=== PATIENT | male | born 1965 | race Caucasian/White ===

== ENCOUNTER 2020-01-01 11:13 | Emergency (ER) | payer MEDICAID ==
[2020-01-01] MEDS ORDERED: Ketorolac 30 MG/ML SDV IM ONE (12:21)
--- NOTE | 2020-01-01 12:21 | EDM.PDOC ---
ED HPI GENERAL MEDICAL PROBLEM - General Chief Complaint: Laceration Stated Complaint: RIGHT THUMB INJURY Time Seen by Provider: 01/01/20 12:21 Source of Information: Reports: Patient History Limitations: Reports: No Limitations - History of Present Illness INITIAL COMMENTS - FREE TEXT/NARRATIVE: 54 years old male patient presented to the ER with a chief complaint of right thumb injury. He was working on his motorcycle and injured his right thumb. Bleeding controlled. No other injuries. She is up-to-date for his tetanus. Right Finger-Thumb Pain Score (Numeric/FACES): 7 - Related Data Allergies Allergy/AdvReac Type Severity Reaction Status Date / Time No Known Allergies Allergy Verified 01/01/20 11:32 Home Meds: Home Meds . [Unable to Verify Home Med List] 01/01/20 [History] Past Medical History HEENT History: Reports: None Cardiovascular History: Reports: High Cholesterol Respiratory History: Reports: None Gastrointestinal History: Reports: GERD Genitourinary History: Reports: None Musculoskeletal History: Reports: None Neurological History: Reports: None Psychiatric History: Reports: None Endocrine/Metabolic History: Reports: None Hematologic History: Reports: None Dermatologic History: Reports: None - Past Surgical History Male Surgical History: Reports: None Musculoskeletal Surgical History: Reports: None Social & Family History - Tobacco Use Smoking Status *Q: Never Smoker - Caffeine Use Caffeine Use: Reports: Coffee - Recreational Drug Use Recreational Drug Use: No ED ROS GENERAL - Review of Systems Review Of Systems: Comprehensive ROS is negative, except as noted in HPI. ED EXAM, SKIN/RASH Exam: See Below Exam Limited By: No Limitations General Appearance: Alert, WD/WN, No Apparent Distress Head: Atraumatic, Normocephalic Respiratory/Chest: No Respiratory Distress, Lungs Clear, Normal Breath Sounds, No Accessory Muscle Use, Chest Non-Tender Cardiovascular: Normal Peripheral Pulses, Regular Rate, Rhythm, No Edema, No Gallop, No JVD, No Murmur, No Rub GI/Abdominal: Normal Bowel Sounds, Soft, Non-Tender, No Organomegaly, No Distention, No Abnormal Bruit, No Mass Extremities: Other (Superficial laceration and contusion of the tip of the right thumb. Bleeding controlled. No foreign body. CMS intact. 2 cm lacerati of the right thump. ) Neurological: Alert, Oriented, CN II-XII Intact, Normal Cognition, Normal Gait, Normal Reflexes, No Motor/Sensory Deficits Course - Vital Signs Last Recorded V/S: Last Vital Signs Temp 36.6 C 01/01/20 11:35 Pulse 53 L 01/01/20 11:35 Resp 16 01/01/20 11:35 BP 110/72 01/01/20 11:35 Pulse Ox 96 01/01/20 11:35 - Orders/Labs/Meds Meds: Medications Discontinued Medications Generic Name Dose Route Start Last Admin Trade Name Lee PRN Reason Stop Dose Admin Bacitracin 1 dose 01/01/20 13:19 Bacitracin Oint 1 Gm TOP 01/01/20 13:20 ONETIME ONE Ketorolac Tromethamine 30 mg 01/01/20 12:21 01/01/20 12:25 Toradol IM 01/01/20 12:22 30 mg ONETIME ONE Administration Lidocaine HCl Confirm 01/01/20 13:08 Xylocaine-Mpf 1% Administered 01/01/20 13:09 Dose 5 ml .ROUTE .STK-MED ONE Lidocaine HCl 5 ml 01/01/20 13:18 Xylocaine-Mpf 1% INJECT 01/01/20 13:19 ONETIME ONE - Radiology Interpretation Free Text/Narrative:: Patient was seen and examined shortly after arrival. Stable. She is up-to-date for his tetanus. Wound was irrigated. Laceration repaired. Advised toKeep wound dry and clean Topical bacitracin twice daily Close follow-up with PCP Suture removal in 7-10 days Come back for any concern or any worsening symptom Patient agrees with the plan. Stable for discharge Procedure note Laceration repair 2 cm laceration of the tip of the right thumb. Risk and benefits of the procedure discussed with the patient including but not limited to infection, poor healing, scar formation, nonhealing, bleeding, etc. Verbal consent obtained . Wound was irrigated with normal saline and normal fashion, standard 3 mL 1% lidocaine without epi for topical anesthesia. 4 simple interrupted suture using 3-0 Ethilon. Good approximation. Patient tolerated the procedure well. No complication. Topical bacitracin and dressing applied. Stable for discharge. Departure - Departure Time of Disposition: 13:21 Disposition: Home, Self-Care 01 Condition: Good Clinical Impression: Thumb laceration - Discharge Information Instructions: Sutured Wound Care, Laceration Care, Adult Referrals: PCP,None [Primary Care Provider] - Forms: ED Department Discharge Additional Instructions: Keep wound dry and clean Topical bacitracin twice daily Close follow-up with PCP Suture removal in 7-10 days Come back for any concern or any worsening symptom Sepsis Event Note (ED) - Evaluation Sepsis Screening Result: No Definite Risk - Focused Exam Vital Signs: Vital Signs Temp Pulse Resp BP Pulse Ox 01/01/20 11:35 36.6 C 53 L 16 110/72 96 01/01/20 11:30 36.6 C 53 L 16 110/72 96 - My Orders Last 24 Hours: Keep wound dry and clean Topical bacitracin twice daily Close follow-up with PCP Suture removal in 7-10 days Come back for any concern or any worsening symptom
[2020-01-01] MEDS ORDERED: Bacitracin Oint 1 GM U/D Packet TOP ONE (13:19)
== END 2020-01-01 13:43 | disposition home or self-care (01) ==
LOC: JP.ED 11:13
DX: S61.011A Laceration without foreign body of right thumb without damage to nail, initial encounter (principal); W26.8XXA Contact with other sharp object(s), not elsewhere classified, initial encounter
CPT/HCPCS: 12001; 96372; 99282; J1885; J2001

== ENCOUNTER 2020-07-01 06:27 | Day surgery (SDC) | payer MEDICAID ==
[2020-07-01] MEDS ORDERED: fentaNYL 100 MCG/2 ML SDV ONE (07:22)
[2020-07-01] MEDS ORDERED: Midazolam 1 MG/ML 2 ML SDV ONE (07:22)
[2020-07-01] MEDS ORDERED: Propofol 200 MG/20 ML SDV ONE (07:22)
[2020-07-01] MEDS ORDERED: Sodium Chloride 0.9% 1,000 ML IV SCH (07:30)
--- NOTE | 2020-07-01 11:27 | OR ---
DATE OF PROCEDURE: SURGEON: Robe Vera MD PROCEDURES: 1. Esophagogastroduodenoscopy. 2. Valdes pH placement (58023). COMPLICATIONS: None. ESTHETICIAN PERMANENT MAKEUP ARTIST: None. ANESTHESIA: MAC. PREOPERATIVE DIAGNOSIS: Epigastric pain concerning for reflux disease. POSTOPERATIVE DIAGNOSIS: Epigastric pain concerning for reflux disease. RISKS: Risks, benefits, alternatives, and limitations including, but not limited to infection, bleeding, and perforation were explained to the patient. We also discussed false positives and false negatives. PROCEDURE IN DETAIL: The patient was placed in left lateral decubitus position. The EGD scope was introduced and advanced atraumatically to the second part of the duodenum. Scope was brought back. No evidence of duodenitis or ulceration. No evidence of old or new blood. No gastritis within the stomach. No ulcers. No hiatal hernia on retroflexion. The GE junction to the mouth was measured at 42 cm. The esophagus was inspected without abnormality. The Valdes pH monitor was then introduced and advanced and placed at 36 cm. Proper protocol was performed using suction, waiting 30 seconds, deploying device, removing suction, and then reinspecting with the EGD. The device was noted to be intact without abnormality. The patient tolerated the procedure well. Robe Vera MD /[id number]
== END 2020-07-01 09:29 | disposition home or self-care (01) ==
LOC: JP.SDS 06:27
PROVIDERS: ATTEND Surgery
DX: R10.13 Epigastric pain (principal); K21.9 Gastro-esophageal reflux disease without esophagitis; E78.00 Pure hypercholesterolemia, unspecified; Z86.010 Personal history of colon polyps; Z98.890 Other specified postprocedural states
CPT/HCPCS: J2250; J2704; J3010; J7030

== ENCOUNTER 2021-07-21 09:06 | Day surgery (SDC) | payer MEDICAID ==
[2021-07-21] MEDS ORDERED: fentaNYL 100 MCG/2 ML SDV ONE (09:37)
[2021-07-21] MEDS ORDERED: Midazolam 1 MG/ML 2 ML SDV ONE (09:37)
[2021-07-21] MEDS ORDERED: Propofol 200 MG/20 ML SDV ONE (09:38)
[2021-07-21] MEDS ORDERED: Sodium Chloride 0.9% 1,000 ML IV SCH (09:45)
== END 2021-07-21 12:01 | disposition home or self-care (01) ==
LOC: JP.SDS 09:06
PROVIDERS: ATTEND Surgery
DX: Z12.11 Encounter for screening for malignant neoplasm of colon (principal); D12.3 Benign neoplasm of transverse colon; D12.8 Benign neoplasm of rectum; K21.9 Gastro-esophageal reflux disease without esophagitis; Z80.0 Family history of malignant neoplasm of digestive organs
CPT/HCPCS: 88305; J2250; J2704; J3010; J7030

== ENCOUNTER 2023-10-27 19:59 | Emergency (ER) | payer MEDICAID ==
[2023-10-27 21:04] LABS: APPEARANCE,URINE CLEAR (CLEAR); BILIRUBIN,URINE NEGATIVE (NEGATIVE); COLOR,URINE YELLOW (YELLOW); GLUCOSE,URINE NEGATIVE (NEGATIVE); KETONES,URINE NEGATIVE (NEGATIVE); LEUKOCYTE ESTERASE,URINE NEGATIVE (NEGATIVE); NITRITE,URINE NEGATIVE (NEGATIVE); OCCULT BLOOD,URINE NEGATIVE (NEGATIVE); PROTEIN,URINE NEGATIVE (NEGATIVE); UROBILINOGEN,URINE 0.2 EU/dL (0.2-1.0)
[2023-10-27] MEDS: methylPREDNISolone Sodium Succinate 125 MG/2 ML SDV IM ONE (21:08)
[2023-10-27 21:09] LABS: AMORPHOUS SEDIMENT,URINE NOT SEEN; BACTERIA,URINE RARE; EPITHELIAL CELLS,URINE RARE; MUCUS,URINE NOT SEEN; RBC,URINE NOT SEEN (0-5); WBC,URINE NOT SEEN (0-5)
[2023-10-27] MEDS: diphenhydrAMINE 25 MG/10 ML Cup PO ONE (21:09)
== END 2023-10-27 21:46 | disposition home or self-care (01) ==
LOC: JP.ED 19:59
DX: L25.9 Unspecified contact dermatitis, unspecified cause (principal); K21.9 Gastro-esophageal reflux disease without esophagitis; E78.00 Pure hypercholesterolemia, unspecified; Z79.899 Other long term (current) drug therapy
CPT/HCPCS: 81001; 96372; 99283; A9270; J2919

== ENCOUNTER 2025-03-04 08:53 | Day surgery (SDC) | payer MEDICAID ==
[2025-03-04] MEDS: Lactated Ringers 1,000 ML IV SCH (09:23)
[2025-03-04] MEDS ORDERED: fentaNYL 50 MCG/ML SDV ONE (10:03)
[2025-03-04] MEDS ORDERED: Propofol 200 MG/20 ML SDV ONE (10:03)
[2025-03-04] MEDS ORDERED: Midazolam 1 MG/ML 2 ML SDV ONE (10:03)
== END 2025-03-04 12:06 | disposition home or self-care (01) ==
LOC: JP.SDS 08:53
PROVIDERS: ATTEND Surgery
DX: K64.8 Other hemorrhoids (principal); E78.00 Pure hypercholesterolemia, unspecified; K21.9 Gastro-esophageal reflux disease without esophagitis; Z79.899 Other long term (current) drug therapy
CPT/HCPCS: 45398; J2250; J2704; J3010; J7120; 00811-QZ